=== PATIENT | female | born 1990 | race African-American/Black ===

== ENCOUNTER 2018-07-03 00:44 | Inpatient (IN) ==
[2018-07-03 00:30] LABS: Apearance,Urine CLEAR (Clear); Bilirubin,Urine Negative (Negative); Blood, Urine Negative (Negative); Glucose,Urine (UA) Negative (Negative); Ketones,Urine Negative (Negative); Mucus,Urine Occasional /LPF (Occasional); Nitrite,Urine Negative (Negative); Protein,Urine Negative; RBC,Urine 1 /HPF (0-4); Squamous Epithelial Cell,Urine Occasional /HPF (0-10); Urine Color Yellow (Yellow); Urine Specific Gravity 1.014 (1.001-1.035); Urine Urobilinogen < 2.0 EU/DL (0.2-1.0); WBC,Urine 7 /HPF (0-6)
[~2018-07-03 00:44] MED LIST: BUTORPHANOL 2 MG/ML VIAL IV PRN; DINOPROSTONE 10 MG VAG.INSERT VAG ONE; MEPERIDINE 50 MG/1 ML VIAL IM PRN; ONDANSETRON 4 MG/2 ML VIAL IV PRN
[2018-07-03] MEDS ORDERED: AMPICILLIN INJ 2,000 MG in SODIUM CHLORIDE 0.9% 100 ML IV ONE (01:00)
[2018-07-03 01:15] LABS: Basophils # 0.1 10*3/uL (0.0-0.2); Basophils % 0.3 % (0.0-0.8); Eosinophils # 0.2 10*3/uL (0.0-0.87); Eosinophils % 1.5 % (0.00-10.9); Hematocrit 32.1 VOL% (35.7-47.0); Immature Granulocytes % 0.9 %; Immature Granulocytes Absolute 0.14 #; Lymphocytes # 2.3 10*3/uL (1.4-4.0); Mean Corpuscular HGB Conc 34.3 GM/DL (32-36); Mean Corpuscular Hemoglobin 34 PG (27-34); Mean Platelet Volume 10.2 FL (9.6-12.0); Monocytes % 6.9 % (1.7-12.7); Neutrophils # 11.3 10*3/uL (1.4-7.4); Neutrophils % 75.4 % (38.7-73.9); Platelet Count 259 T/CUMM (130-400); Red Blood Count 3.21 MC/CUMM (3.8-5.5); White Blood Count 15.1 T/CUMM (4-12)
[2018-07-03 01:20] LABS: INR 0.9; PT Patient Result 9.3 SECS; Partial Thromboplastin Time 29.7 SECS (0-40)
[2018-07-03 01:23] LABS: Alanine Aminotransferase 24 U/L (13-56); Albumin 2.8 G/DL (3.4-5.0); Alkaline Phosphatase 121 U/L (45-117); Aspartate Amino Transferase 18 U/L (0-37); Bilirubin,Total < 0.39 MG/DL (0.2-1.0); Blood Urea Nitrogen 11 MG/DL (7-18); Glucose 99 MG/DL (74-106); Osmolality,Calculated 273.7 MOS/KG (273-304); Potassium 3.9 MMOL/L (3.5-5.1); Sodium 138 MMOL/L (136-145); Total Protein 7.4 G/DL (6.4-8.3)
[2018-07-03] MEDS: LACTATED RINGERS 1,000 ML IV SCH ×2 (01:24→13:50)
[2018-07-03] MEDS ORDERED: LABETALOL 100 MG TABLET PO SCH (01:30)
[2018-07-03] MEDS: AMPICILLIN INJ 1,000 MG in SODIUM CHLORIDE 0.9% 100 ML IV SCH ×3 (04:33→13:06)
[2018-07-03] MEDS ORDERED: LABETALOL 200 MG TABLET PO SCH (09:00)
[2018-07-03] MEDS: OXYTOCIN/LR 20 UNIT/1,000 ML BAG IV SCH ×2 (09:05→15:17)
[2018-07-03] MEDS ORDERED: PROMETHAZINE 25 MG/1 ML VIAL IM ONE (12:47)
[2018-07-03] MEDS ORDERED: CITRIC ACID/SODIUM CITRATE 30 ML UDCUP PO ONE (12:47)
[2018-07-03] MEDS ORDERED: FAMOTIDINE 20 MG/2 ML VIAL IV ONE (12:47)
[2018-07-03] MEDS ORDERED: hydrOXYzine HCL 25 MG/1 ML VIAL IM PRN (12:47)
[2018-07-03] MEDS ORDERED: ePHEDrine 50 MG/ML AMP IV PRN (12:47)
[2018-07-03] MEDS ORDERED: diphenhydrAMINE 50 MG/1 ML VIAL IV PRN (12:47)
[2018-07-03] MEDS ORDERED: NALOXONE 0.4 MG/ML VIAL IV PRN (12:47)
[2018-07-03] MEDS ORDERED: fentaNYL 2 MCG/ROPIV 0.2% EPID 100 ML EPIDURAL SCH (13:00)
[2018-07-03] MEDS ORDERED: TERBUTALINE 1 MG/1 ML VIAL SUBCUT ONE ×2 (13:53→16:54)
[2018-07-03] MEDS ORDERED: SODIUM CHLORIDE 0.9% 0 ML IV ONE (14:22)
[2018-07-03] MEDS ORDERED: AMPICILLIN 2,000 MG VIAL ONE (14:22)
[2018-07-03] MEDS ORDERED: OXYTOCIN 10 UNIT/ML VIAL ONE (14:29)
[2018-07-03] MEDS ORDERED: MORPHINE 10 MG/10 ML VIAL ONE (15:15)
[2018-07-03 15:26] LABS: Cord Venous Blood HCO3 20.5 MMOL/L; Cord Venous Blood PCO2 53.6 MMHG; Cord Venous Blood PO2 20.3
[2018-07-03 15:28] LABS: Cord Arterial Blood HCO3 21.6 MMOL/L
[2018-07-03] MEDS ORDERED: IBUPROFEN 800 MG TABLET PO PRN (16:02)
[2018-07-03] MEDS ORDERED: RHO(D) IMMUNE GLOBULIN 300 MCG SYRINGE IM ONE (16:02)
[2018-07-03] MEDS ORDERED: ONDANSETRON 4 MG/2 ML VIAL IV PRN (16:02)
[2018-07-03] MEDS ORDERED: ACETAMINOPHEN 325 MG TABLET PO PRN (16:02)
[2018-07-03] MEDS ORDERED: SIMETHICONE CHEW 80 MG TABLET PO PRN (16:02)
[2018-07-03] MEDS ORDERED: OXYTOCIN/LR 20 UNIT/1,000 ML BAG IV ONE (16:02)
[2018-07-03] MEDS ORDERED: MAGNESIUM HYDROXIDE SUSP 30 ML UDCUP PO PRN (16:02)
[2018-07-03] MEDS ORDERED: LACTATED RINGERS 1,000 ML IV SCH (16:30)
[2018-07-03] MEDS ORDERED: ceFAZolin 1,000 MG in SYRINGE 1 EACH IV SCH (17:00)
[2018-07-03] MEDS: DOCUSATE SODIUM 100 MG CAPSULE PO SCH (21:24)
[2018-07-03] MEDS: ceFAZolin 1,000 MG in SYRINGE 1 EACH IV SCH (21:56)
[2018-07-04] MEDS: ceFAZolin 1,000 MG in SYRINGE 1 EACH IV SCH (04:18)
[2018-07-04 06:01] LABS: Basophils % 0.2 % (0.0-0.8); Eosinophils % 0.1 % (0.00-10.9); Hematocrit 27.2 VOL% (35.7-47.0); Hemoglobin 9.2 GM/DL (12.0-16.0); Immature Granulocytes % 0.6 %; Immature Granulocytes Absolute 0.11 #; Lymphocytes # 1.7 10*3/uL (1.4-4.0); Lymphocytes % 9.9 % (21.3-54.2); Mean Corpuscular HGB Conc 33.8 GM/DL (32-36); Mean Corpuscular Hemoglobin 34 PG (27-34); Mean Corpuscular Volume 100.4 FL (87-102); Mean Platelet Volume 9.8 FL (9.6-12.0); Monocytes # 1.3 10*3/uL (0.11-0.8); Monocytes % 7.8 % (1.7-12.7); Neutrophils # 14.1 10*3/uL (1.4-7.4); Neutrophils % 81.4 % (38.7-73.9); Platelet Count 199 T/CUMM (130-400); Red Blood Count 2.71 MC/CUMM (3.8-5.5); Red Cell Distribution Width 12.4 % (9.3-17.3); White Blood Count 17.3 T/CUMM (4-12)
[2018-07-04] MEDS: DOCUSATE SODIUM 100 MG CAPSULE PO SCH ×2 (09:24→20:32)
[2018-07-04] MEDS: MULTIVITAMIN (PRENATAL) TABLET PO SCH (09:24)
[2018-07-04] MEDS: IBUPROFEN 800 MG TABLET PO SCH ×2 (12:33→20:30)
[2018-07-05] MEDS: IBUPROFEN 800 MG TABLET PO SCH ×3 (04:14→20:20)
[2018-07-05 05:29] LABS: Basophils % 0.1 % (0.0-0.8); Eosinophils # 0.2 10*3/uL (0.0-0.87); Eosinophils % 1.5 % (0.00-10.9); Hematocrit 27.4 VOL% (35.7-47.0); Hemoglobin 9.4 GM/DL (12.0-16.0); Immature Granulocytes % 0.8 %; Immature Granulocytes Absolute 0.12 #; Lymphocytes # 1.6 10*3/uL (1.4-4.0); Lymphocytes % 10.8 % (21.3-54.2); Mean Corpuscular HGB Conc 34.3 GM/DL (32-36); Mean Corpuscular Hemoglobin 34 PG (27-34); Mean Platelet Volume 9.7 FL (9.6-12.0); Monocytes # 1.3 10*3/uL (0.11-0.8); Monocytes % 8.5 % (1.7-12.7); Neutrophils # 11.6 10*3/uL (1.4-7.4); Neutrophils % 78.3 % (38.7-73.9); Platelet Count 234 T/CUMM (130-400); Red Blood Count 2.74 MC/CUMM (3.8-5.5); Red Cell Distribution Width 12.1 % (9.3-17.3); White Blood Count 14.8 T/CUMM (4-12)
[2018-07-05] MEDS: MULTIVITAMIN (PRENATAL) TABLET PO SCH (10:10)
[2018-07-05] MEDS: DOCUSATE SODIUM 100 MG CAPSULE PO SCH ×2 (10:10→20:20)
[2018-07-06] MEDS: IBUPROFEN 800 MG TABLET PO SCH ×2 (04:53→13:48)
[2018-07-06 07:24] VITALS: BP 137/79
[2018-07-06] MEDS ORDERED: FERROUS SULFATE 325 MG TABLET PO SCH (09:00)
[2018-07-06] MEDS: DOCUSATE SODIUM 100 MG CAPSULE PO SCH (10:16)
[2018-07-06] MEDS: MULTIVITAMIN (PRENATAL) TABLET PO SCH (10:16)
== END 2018-07-06 12:40 | disposition home or self-care (01) | DRG 540 ==
LOC: N.LD → N.OB 18:28
PROVIDERS: ADMIT Obstetrics & Gynecology; ATTEND Obstetrics & Gynecology
PROC: LDCSECT (ICD-10-PCS; 2018-07-03 14:25)

== ENCOUNTER 2020-10-29 09:57 | Inpatient (IN) ==
[2020-10-29] MEDS ORDERED: CITRIC ACID/SODIUM CITRATE 30 ML UDCUP PO ONE (10:41)
[2020-10-29] MEDS ORDERED: ceFAZolin 3,000 MG in SYRINGE 1 EACH IV ONE (10:41)
[2020-10-29 10:59] LABS: Basophils % 0.3 % (0.0-0.8); Eosinophils # 0.1 10*3/uL (0.0-0.87); Eosinophils % 1.1 % (0.00-10.9); Hemoglobin 10.9 GM/DL (12.0-16.0); Immature Granulocytes % 0.7 %; Immature Granulocytes Absolute 0.08 #; Lymphocytes # 2.2 10*3/uL (1.4-4.0); Lymphocytes % 18.9 % (21.3-54.2); Mean Corpuscular HGB Conc 34.1 GM/DL (32-36); Mean Corpuscular Volume 95.2 FL (87-102); Mean Platelet Volume 10.2 FL (9.6-12.0); Platelet Count 313 T/CUMM (130-400); Red Blood Count 3.36 MC/CUMM (3.8-5.5); Red Cell Distribution Width 12.6 % (9.3-17.3); White Blood Count 11.5 T/CUMM (4-12)
[2020-10-29] MEDS ORDERED: LACTATED RINGERS 1,000 ML IV SCH ×3 (11:00→23:30)
[2020-10-29 11:13] LABS: INR 0.9; PT Patient Result 9.8 SECS (10.5-12.0); Partial Thromboplastin Time 30.7 SECS (23.9-33.8)
[2020-10-29 11:18] LABS: Alanine Aminotransferase 17 U/L (13-56); Albumin 2.9 G/DL (3.4-5.0); Alkaline Phosphatase 129 U/L (45-117); Aspartate Amino Transferase 19 U/L (0-37); Bilirubin,Direct < 0.100 MG/DL (0.0-0.20); Bilirubin,Total < 0.39 MG/DL (0.20-1.00); Blood Urea Nitrogen 10 MG/DL (7-18); Calcium 8.7 MG/DL (8.5-10.1); Carbon Dioxide 23 MMOL/L (21-32); Estimated Glom Filtration Rate 169 ML/MIN; Glucose 76 MG/DL (74-106); Osmolality,Calculated 270.8 MOS/KG (273-304); Potassium 3.8 MMOL/L (3.5-5.1); Sodium 137 MMOL/L (136-145); Total Protein 7.5 G/DL (6.4-8.2); Uric Acid 4.4 MG/DL (2.6-6.0)
[2020-10-29] MEDS ORDERED: OXYTOCIN 10 UNIT/ML VIAL IM ONE (12:21)
[2020-10-29] MEDS ORDERED: OXYTOCIN/LR 30 UNIT/1,000 ML BAG IV ONE (12:21)
[2020-10-29] MEDS ORDERED: FAMOTIDINE 20 MG/2 ML VIAL IV ONE (12:25)
[2020-10-29 12:30] LABS: Protein/Creatinine Ratio,Urine 0.2 RATIO
[2020-10-29] MEDS ORDERED: BUPIVACAINE SPINAL 0.75% 2 ML AMP SPINAL ONE (13:17)
[2020-10-29] MEDS ORDERED: ONDANSETRON 4 MG/2 ML VIAL ONE (13:17)
[2020-10-29] MEDS ORDERED: ACETAMINOPHEN INJ 1,000 MG/100 ML VIAL IV ONE (13:17)
[2020-10-29] MEDS ORDERED: PHENYLEPHRINE 1 MG/10 ML SYRINGE IV ONE ×2 (13:18→14:23)
[2020-10-29 14:33] LABS: Cord Arterial Blood HCO3 21.1 MMOL/L
[2020-10-29] MEDS ORDERED: ePHEDrine 50 MG/ML VIAL ONE (14:33)
[2020-10-29 14:37] LABS: Cord Venous Blood HCO3 21.4 MMOL/L; Cord Venous Blood PCO2 48.7 MMHG; Cord Venous Blood PO2 20.5
[2020-10-29 14:54] LABS: Bilirubin,Urine Negative (Negative); Blood, Urine Negative (Negative); Glucose,Urine (UA) Negative (Negative); Ketones,Urine 20 mg/dL (Negative); Mucus,Urine Moderate /LPF (Occasional); Nitrite,Urine Negative (Negative); Protein,Urine Negative; RBC,Urine 2 /HPF (0-4); Squamous Epithelial Cell,Urine Occasional /HPF (0-10); Urine Appearance CLEAR (Clear); Urine Color Yellow (Yellow); Urine Specific Gravity 1.023 (1.001-1.035); Urine Urobilinogen < 2.0 EU/DL (0.2-1.0)
[2020-10-29] MEDS ORDERED: IBUPROFEN 800 MG TABLET PO PRN (15:11)
[2020-10-29] MEDS ORDERED: RHO(D) IMMUNE GLOBULIN 300 MCG SYRINGE IM ONE (15:11)
[2020-10-29] MEDS ORDERED: SIMETHICONE CHEW 80 MG TABLET PO PRN (15:11)
[2020-10-29] MEDS ORDERED: OXYTOCIN/LR 20 UNIT/1,000 ML BAG IV ONE (15:11)
[2020-10-29] MEDS ORDERED: ONDANSETRON 4 MG/2 ML VIAL IV PRN (15:11)
[2020-10-29] MEDS ORDERED: ACETAMINOPHEN 325 MG TABLET PO PRN (15:11)
[2020-10-29] MEDS: DOCUSATE SODIUM 100 MG CAPSULE PO SCH (20:27)
[2020-10-29] MEDS: ACETAMINOPHEN 500 MG TABLET PO SCH (21:30)
[2020-10-29 22:57] LABS: Hematocrit 28.1 VOL% (35.7-47.0); Hemoglobin 9.2 GM/DL (12.0-16.0)
[2020-10-30] MEDS: ACETAMINOPHEN 500 MG TABLET PO SCH ×2 (03:26→10:07)
[2020-10-30 06:18] LABS: Basophils % 0.2 % (0.0-0.8); Eosinophils # 0.1 10*3/uL (0.0-0.87); Eosinophils % 0.8 % (0.00-10.9); Hematocrit 27.9 VOL% (35.7-47.0); Hemoglobin 9.6 GM/DL (12.0-16.0); Immature Granulocytes % 0.6 %; Immature Granulocytes Absolute 0.06 #; Lymphocytes # 1.4 10*3/uL (1.4-4.0); Lymphocytes % 13.2 % (21.3-54.2); Mean Corpuscular HGB Conc 34.4 GM/DL (32-36); Mean Corpuscular Volume 97.2 FL (87-102); Mean Platelet Volume 10.3 FL (9.6-12.0); Monocytes % 8.3 % (1.7-12.7); Neutrophils % 76.9 % (38.7-73.9); Platelet Count 249 T/CUMM (130-400); Red Blood Count 2.87 MC/CUMM (3.8-5.5); Red Cell Distribution Width 12.5 % (9.3-17.3); White Blood Count 10.5 T/CUMM (4-12)
[2020-10-30] MEDS: FERROUS SULFATE 325 MG TABLET PO SCH ×2 (09:57→16:40)
[2020-10-30] MEDS: MULTIVITAMIN (PRENATAL) TABLET PO SCH (09:57)
[2020-10-30] MEDS: DOCUSATE SODIUM 100 MG CAPSULE PO SCH ×2 (09:57→21:39)
[2020-10-30] MEDS ORDERED: ACETAMINOPHEN 500 MG TABLET ONE (10:09)
[2020-10-30] MEDS: METOCLOPRAMIDE 10 MG TABLET PO SCH (16:40)
[2020-10-30] MEDS: MAGNESIUM HYDROXIDE SUSP 30 ML UDCUP PO PRN (21:39)
[2020-10-30] MEDS: IBUPROFEN 800 MG TABLET PO PRN (21:39)
[2020-10-31] MEDS: METOCLOPRAMIDE 10 MG TABLET PO SCH ×2 (00:17→12:07)
[2020-10-31] MEDS ORDERED: MAGNESIUM CITRATE 300 ML BOTTLE PO ONE (03:36)
[2020-10-31] MEDS: IBUPROFEN 800 MG TABLET PO PRN (06:24)
[2020-10-31 08:34] VITALS: BP 136/85
[2020-10-31] MEDS: MAGNESIUM HYDROXIDE SUSP 30 ML UDCUP PO PRN (09:13)
[2020-10-31] MEDS: DOCUSATE SODIUM 100 MG CAPSULE PO SCH (09:13)
[2020-10-31] MEDS: FERROUS SULFATE 325 MG TABLET PO SCH (09:13)
[2020-10-31] MEDS: MULTIVITAMIN (PRENATAL) TABLET PO SCH (09:13)
== END 2020-10-31 13:25 | disposition home or self-care (01) | DRG 540 ==
LOC: SCHINTOOBSV 09:57 → SCHOBSVTOIN 10:03 → N.LD 10:12 → N.OB 18:26
PROVIDERS: ADMIT Obstetrics & Gynecology; ATTEND Obstetrics & Gynecology
PROC: LDCSECT (ICD-10-PCS; 2020-10-29 15:00)